=== PATIENT | female | born 1985 | race Two or more races ===

== ENCOUNTER 2018-02-24 07:27 | Outpatient (CLI) | payer OTHER | END 2018-02-24 07:33 | disposition home or self-care (01) | LOC: MRI 07:27 | DX: R42 Dizziness and giddiness (principal); R51 Headache | CPT/HCPCS: 70553 ==

== ENCOUNTER → 2019-07-21 | Outpatient (CLI) | payer OTHER | END | disposition home or self-care (01) | LOC: RX STUDY 09:15 | DX: N93.0 Postcoital and contact bleeding (principal) ==

== ENCOUNTER 2020-03-28 08:34 | Outpatient (CLI) | payer OTHER | END 2020-03-28 08:54 | disposition home or self-care (01) | LOC: NUCLEAR 08:34 | PROVIDERS: ATTEND Internal Medicine Cardiovascular Disease | DX: I11.9 Hypertensive heart disease without heart failure (principal); R00.2 Palpitations ==

== ENCOUNTER 2020-04-19 12:30 | Inpatient (IN) | payer OTHER ==
[~2020-04-19] VITALS: Ht 175.3 cm; Wt 93.9 kg
[2020-05-04] MEDS ORDERED: PRENATAL TABLE1 EAC3 PO (14:38)
== END 2020-05-06 12:37 | disposition home or self-care (01) | DRG 807 ==
LOC: LDR 05-04 14:02 → SURG-SUITE 05-04 20:36 → LDR 05-14 12:30
PROVIDERS: ADMIT Obstetrics & Gynecology; ATTEND Obstetrics & Gynecology
PROC: 10E0XZZ Delivery of Products of Conception, External Approach (ICD-10-PCS; principal; 2020-05-04)
PROC: 0KQM0ZZ Repair Perineum Muscle, Open Approach (ICD-10-PCS; 2020-05-04)
PROC: 4A0HXFZ Measurement of Products of Conception, Cardiac Rhythm, External Approach (ICD-10-PCS; 2020-05-04)
DX: O70.1 Second degree perineal laceration during delivery (principal); Z37.0 Single live birth; O77.0 Labor and delivery complicated by meconium in amniotic fluid; Z3A.38 38 weeks gestation of pregnancy

== ENCOUNTER 2020-05-04 13:06 | Outpatient (CLI) | payer OTHER ==
[2020-05-04] MEDS ORDERED: PRENATAL TABLE1 EAC3 PO (14:38)
== END 2020-05-04 14:03 | disposition home or self-care (01) ==
LOC: NST 13:06
PROVIDERS: ATTEND Obstetrics & Gynecology Maternal & Fetal Medicine
DX: Z34.83 Encounter for supervision of other normal pregnancy, third trimester (principal)

== ENCOUNTER 2022-05-06 09:36 | Outpatient (CLI) | payer OTHER ==
[~2022-05-06 09:36] MED LIST: PRENATAL TABLE1 EAC3 PO
== END 2022-05-06 09:46 | disposition home or self-care (01) ==
LOC: PPH VACUNA 09:36
PROVIDERS: ATTEND Emergency Medicine Pediatric Emergency Medicine
DX: Z23 Encounter for immunization (principal)

== ENCOUNTER 2022-09-17 05:49 | Inpatient (IN) | payer OTHER ==
[~2022-09-17] VITALS: Ht 175.3 cm; Wt 93.0 kg
== END 2022-09-19 11:38 | disposition home or self-care (01) | DRG 807 ==
LOC: LDR 05:49 → OB/GYN 14:19
PROVIDERS: ADMIT Obstetrics & Gynecology; ATTEND Obstetrics & Gynecology
PROC: 10E0XZZ Delivery of Products of Conception, External Approach (ICD-10-PCS; principal; 2022-09-17)
PROC: 0HQ9XZZ Repair Perineum Skin, External Approach (ICD-10-PCS; 2022-09-17)
PROC: 4A1HXCZ Monitoring of Products of Conception, Cardiac Rate, External Approach (ICD-10-PCS; 2022-09-17)
DX: O70.0 First degree perineal laceration during delivery (principal); Z37.0 Single live birth; Z3A.37 37 weeks gestation of pregnancy; Z20.822 Contact with and (suspected) exposure to COVID-19